=== PATIENT | male | born 1985 | race Two or more races ===

== ENCOUNTER 2019-03-26 18:22 | Emergency (ER) | payer OTHER ==
[~2019-03-26] VITALS: Ht 172.7 cm; Wt 97.2 kg
--- NOTE | 2019-03-26 19:05 | NUR ---
ASSUMED CARE OF PT. PT CURRENTLY IN IMAGING.
[2019-03-26] MEDS ORDERED: KETOROLAC 30 MG/1 ML IM ONE (19:30)
[2019-03-26] MEDS ORDERED: DIAZEPAM 5 MG TABLET PO ONE (19:30)
[2019-03-26] MEDS ORDERED: KETOROLAC 30 MG/1 ML ONE (19:43)
[2019-03-26] MEDS ORDERED: DIAZEPAM 5 MG TABLET ONE (19:43)
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
[2019-03-26 20:20] VITALS: BP 129/96
[2019-03-26] MEDS ORDERED: OMNIPAQUE 350 MG/ML, 100ML BOTTLE ONE (20:24)
[2019-03-26 20:50] LABS: BASOPHILS # (AUTO) 0.04 x10^3/uL (0-0.1); BASOPHILS % (AUTO) 0 % (0-1); EOSINOPHILS # (AUTO) 0.04 x10^3/uL (0-0.4); EOSINOPHILS % (AUTO) 0 % (1-7); LYMPHOCYTES # (AUTO) 1.95 x10^3/uL (1-3.4); LYMPHOCYTES % (AUTO) 20 % (22-44); MD NO; MEAN CORPUSCULAR HEMOGLOBIN 28.5 pg (27.5-34.5); MEAN CORPUSCULAR HGB CONC 34.3 g/dL (33.2-36.2); MEAN CORPUSCULAR VOLUME 82.9 fL (81-97); MEAN PLATELET VOLUME 9.2 fL (7.4-10.4); MONOCYTES # (AUTO) 0.64 x10^3/uL (0.2-0.8); MONOCYTES % (AUTO) 7 % (2-9); NEUTROPHILS # (AUTO) 7.24 x10^3/uL (1.8-6.8); NEUTROPHILS % (AUTO) 73 % (42-75); PLATELET COUNT 249 x10^3/uL (130-400); RED BLOOD COUNT 5.26 x10^6/uL (4.38-5.82); RED CELL DISTRIBUTION WIDTH 13.2 % (9.4-14.8)
[2019-03-26 20:59] LABS: MICROSCOPIC AUTO
[2019-03-26 21:01] LABS: ANION GAP 7 mmol/L (5-15); CALCIUM 8.8 mg/dL (8.5-10.1); CHLORIDE 109 mmol/L (98-107); CREATININE 0.95 mg/dL (0.7-1.3)
[2019-03-26 21:02] LABS: CULTURE INDICATED? NO
--- NOTE | 2019-03-26 21:10 | NUR ---
PT REPORTS PAIN IS DECREASED FROM 8/10 TO 6/10. PT AO X 4. SKIN PWD. RESP EVEN AND UNLABORED. PT AWARE THAT WE ARE WAITING FOR LAB/IMAGING RESULTS. CALL LIGHT WITHIN REACH. WILL CONT TO MONITOR PT.
--- NOTE | 2019-03-26 21:46 | NUR ---
REPORT TO HAYLIE BENJAMIN WHO ASSUMED CARE OF PT.
--- NOTE | 2019-03-26 21:54 | NUR ---
REPORT RECEIVED FROM HAYLIE ARCINIEGA. ASSUMED CARE OF PT. AWAITING CT RESULTS AT THIS TIME. WILL CONTINUE TO MONITOR.
--- NOTE | 2019-03-26 22:13 | NUR ---
Patient/Caregiver given discharge instructions and they have confirmed that they understand the instructions. Patient ambulatory with steady gait.
== END 2019-03-26 22:14 | disposition home or self-care (01) ==
LOC: ED 21:09
DX: S39.012A Strain of muscle, fascia and tendon of lower back, initial encounter (principal); W11.XXXA Fall on and from ladder, initial encounter; Y93.89 Activity, other specified; Y92.89 Other specified places as the place of occurrence of the external cause; Y99.8 Other external cause status
CPT/HCPCS: 36415; 71111; 72110; 72220; 73080; 73110; 74177; 80048; 81001; 85025; 96372; 99284; J1885; Q9967

== ENCOUNTER 2019-05-14 18:36 | Inpatient (IN) | payer OTHER ==
[~2019-05-14] VITALS: Ht 172.7 cm; Wt 97.0 kg
--- NOTE | 2019-05-14 19:20 | NUR ---
FIRST CONTACT WITH PT. PT STATES INCREASING LEFT ARM PAIN, SWELLING, AND REDNESS AFTER FALL March. PT'S AOX4. RESPS EVEN AND UNLABORED. BP/SPO2 MONITORS IN PLACE. CALL LIGHT WITHIN REACH. PA AT BEDSIDE TO EVALUATE AT THIS TIME.
[2019-05-14] MEDS ORDERED: ACETAMINOPHEN 325 MG TABLET ONE (19:23)
[2019-05-14] MEDS ORDERED: HYDROcodone/APAP 10/325 MG TABLET ONE (19:23)
[2019-05-14] MEDS ORDERED: ACETAMINOPHEN 325 MG TABLET PO ONE (19:30)
[2019-05-14] MEDS ORDERED: SODIUM CHLORIDE 0.9% 1,000ML IVBOLUS ONE (19:30)
[2019-05-14] MEDS ORDERED: HYDROcodone/APAP 10/325 MG TABLET PO ONE (19:30)
[2019-05-14] MEDS ORDERED: SODIUM CHLORIDE FLUSH 10ML SYR IVF ONE (19:30)
[2019-05-14 19:33] LABS: BASOPHILS # (AUTO) 0.05 x10^3/uL (0-0.1); BASOPHILS % (AUTO) 0 % (0-1); EOSINOPHILS # (AUTO) 0.09 x10^3/uL (0-0.4); EOSINOPHILS % (AUTO) 1 % (1-7); LYMPHOCYTES # (AUTO) 2.56 x10^3/uL (1-3.4); LYMPHOCYTES % (AUTO) 17 % (22-44); MD NO; MEAN CORPUSCULAR HEMOGLOBIN 28.4 pg (27.5-34.5); MEAN CORPUSCULAR HGB CONC 33.6 g/dL (33.2-36.2); MEAN CORPUSCULAR VOLUME 84.5 fL (81-97); MEAN PLATELET VOLUME 9.2 fL (7.4-10.4); MONOCYTES # (AUTO) 1.17 x10^3/uL (0.2-0.8); MONOCYTES % (AUTO) 8 % (2-9); NEUTROPHILS # (AUTO) 11.16 x10^3/uL (1.8-6.8); NEUTROPHILS % (AUTO) 74 % (42-75); PLATELET COUNT 226 x10^3/uL (130-400); RED BLOOD COUNT 4.76 x10^6/uL (4.38-5.82); RED CELL DISTRIBUTION WIDTH 13.6 % (9.4-14.8)
--- NOTE | 2019-05-14 19:35 | NUR ---
PT MEDICATED PER EMAR. PT TOLERATED WELL. NS INFUSING.
[2019-05-14 19:45] LABS: ALANINE AMINOTRANSFERASE 35 U/L (12-78); ANION GAP 9 mmol/L (5-15); CALCIUM 8.7 mg/dL (8.5-10.1); CHLORIDE 108 mmol/L (98-107); CREATININE 1.11 mg/dL (0.7-1.3)
[2019-05-14 19:51] LABS: ALKALINE PHOSPHATASE 68 U/L (45-117); BILIRUBIN,TOTAL 0.6 mg/dL (0.2-1.0); TOTAL PROTEIN 7.8 g/dL (6.4-8.2)
[2019-05-14] MEDS ORDERED: CEFTRIAXONE PMX 1GM/50ML 50 ML IVPB ONE (20:00)
[2019-05-14] MEDS ORDERED: CEFTRIAXONE PMX 1GM/50ML 50 ML ONE (20:04)
--- NOTE | 2019-05-14 20:23 | NUR ---
ABX INFUSING AT THIS TIME. PT TOLERATED WELL.
[2019-05-14 20:28] LABS: HCT (SEDRATE) 39.9 % (39.2-51.8)
[2019-05-14] MEDS ORDERED: SODIUM CHLORIDE FLUSH 10ML SYR IVF PRN (20:30)
--- NOTE | 2019-05-14 20:52 | NUR ---
REPORT GIVEN TO KATELYN STALLINGS. ALL QUESTIONS ANSWERED.
--- NOTE | 2019-05-14 20:55 | NUR ---
PT TO CT NOW.
[2019-05-14 21:00] VITALS: BP 116/79
[2019-05-14] MEDS ORDERED: ACETAMINOPHEN 325 MG TABLET PO PRN (21:00)
[2019-05-14] MEDS ORDERED: ONDANSETRON 2MG/ML, 2ML IVPush PRN (21:00)
[2019-05-14] MEDS ORDERED: OMNIPAQUE 350 MG/ML, 100ML BOTTLE ONE (21:00)
[2019-05-14] MEDS: SODIUM CHLORIDE 0.9% 1,000 ML IV SCH (21:58)
[2019-05-14] MEDS: CLINDAMYCIN PMX 600MG/50ML 50 ML IV SCH (21:58)
[2019-05-14] MEDS: HYDROcodone/APAP 5/325 TABLET PO PRN (23:35)
[2019-05-15 00:27] VITALS: BP 112/74
[2019-05-15 05:30] LABS: BASOPHILS # (AUTO) 0.04 x10^3/uL (0-0.1); BASOPHILS % (AUTO) 0 % (0-1); EOSINOPHILS # (AUTO) 0.32 x10^3/uL (0-0.4); EOSINOPHILS % (AUTO) 3 % (1-7); LYMPHOCYTES # (AUTO) 2.72 x10^3/uL (1-3.4); LYMPHOCYTES % (AUTO) 22 % (22-44); MD NO; MEAN CORPUSCULAR HEMOGLOBIN 28.5 pg (27.5-34.5); MEAN CORPUSCULAR HGB CONC 33.5 g/dL (33.2-36.2); MEAN CORPUSCULAR VOLUME 84.9 fL (81-97); MEAN PLATELET VOLUME 9.5 fL (7.4-10.4); MONOCYTES # (AUTO) 1.07 x10^3/uL (0.2-0.8); MONOCYTES % (AUTO) 9 % (2-9); NEUTROPHILS # (AUTO) 8.28 x10^3/uL (1.8-6.8); NEUTROPHILS % (AUTO) 67 % (42-75); PLATELET COUNT 202 x10^3/uL (130-400); RED CELL DISTRIBUTION WIDTH 13.8 % (9.4-14.8)
[2019-05-15 05:31] LABS: ANION GAP 7 mmol/L (5-15); CALCIUM 8.6 mg/dL (8.5-10.1); CHLORIDE 110 mmol/L (98-107); CREATININE 0.78 mg/dL (0.7-1.3)
[2019-05-15 05:35] LABS: HEMOGLOBIN A1C 5.4 % (4.2-6.3)
[2019-05-15] MEDS: CLINDAMYCIN PMX 600MG/50ML 50 ML IV SCH ×3 (05:57→21:58)
[2019-05-15] MEDS: SODIUM CHLORIDE 0.9% 1,000 ML IV SCH ×2 (07:00→17:55)
[2019-05-15 07:42] VITALS: BP 110/74
[2019-05-15 13:50] VITALS: BP 135/91
[2019-05-15] MEDS: HYDROcodone/APAP 5/325 TABLET PO PRN ×2 (14:18→22:06)
[2019-05-15 21:14] VITALS: BP 120/81
[2019-05-16] MEDS: SODIUM CHLORIDE 0.9% 1,000 ML IV SCH ×3 (01:54→22:20)
[2019-05-16 01:59] VITALS: BP 114/78
[2019-05-16] MEDS: CLINDAMYCIN PMX 600MG/50ML 50 ML IV SCH ×3 (05:55→22:18)
[2019-05-16 06:11] LABS: BASOPHILS # (AUTO) 0.03 x10^3/uL (0-0.1); BASOPHILS % (AUTO) 0 % (0-1); EOSINOPHILS % (AUTO) 3 % (1-7); LYMPHOCYTES # (AUTO) 2.23 x10^3/uL (1-3.4); LYMPHOCYTES % (AUTO) 23 % (22-44); MD NO; MEAN CORPUSCULAR HGB CONC 33.3 g/dL (33.2-36.2); MEAN CORPUSCULAR VOLUME 84.1 fL (81-97); MEAN PLATELET VOLUME 9.2 fL (7.4-10.4); MONOCYTES # (AUTO) 0.64 x10^3/uL (0.2-0.8); MONOCYTES % (AUTO) 7 % (2-9); NEUTROPHILS % (AUTO) 68 % (42-75); PLATELET COUNT 206 x10^3/uL (130-400); RED BLOOD COUNT 4.85 x10^6/uL (4.38-5.82)
[2019-05-16 06:22] LABS: ANION GAP 8 mmol/L (5-15); CHLORIDE 108 mmol/L (98-107); CREATININE 0.87 mg/dL (0.7-1.3)
[2019-05-16 07:23] VITALS: BP 133/92
[2019-05-16] MEDS: HYDROcodone/APAP 5/325 TABLET PO PRN (13:12)
[2019-05-16 13:17] VITALS: BP 129/84
[2019-05-16 20:04] VITALS: BP 113/71
[2019-05-17 01:38] VITALS: BP 117/77
[2019-05-17] MEDS: CLINDAMYCIN PMX 600MG/50ML 50 ML IV SCH (06:04)
[2019-05-17 06:54] VITALS: BP 136/95
[2019-05-17] MEDS: SODIUM CHLORIDE 0.9% 1,000 ML IV SCH (08:32)
[2019-05-17] MEDS ORDERED: DOXY100T PO (10:04)
[2019-05-17] MEDS ORDERED: AMOX1TAB64 PO (10:04)
[2019-05-17] MEDS ORDERED: LACT1CAP35 PO (10:24)
== END 2019-05-17 11:24 | disposition home or self-care (01) | DRG 872 ==
LOC: ED 19:39 → 3NE 21:15 → DCLOUNGE 05-17 11:10
PROVIDERS: ADMIT Internal Medicine; ATTEND Internal Medicine
DX: A41.9 Sepsis, unspecified organism (principal); L03.114 Cellulitis of left upper limb; M71.10 Other infective bursitis, unspecified site; M71.122 Other infective bursitis, left elbow; Z83.3 Family history of diabetes mellitus
CPT/HCPCS: 36415; 80048; 80053; 83036; 83605; 84145; 85025; 85651; 86140; 87040; 96374; 99285; G0378; J0696; J2405; Q9967; J7030

== ENCOUNTER 2020-02-18 11:39 | Emergency (ER) | payer OTHER ==
[~2020-02-18] VITALS: Ht 172.7 cm; Wt 101.0 kg
[~2020-02-18 11:39] MED LIST: AMOX1TAB64 PO; DOXY100T PO; LACT1CAP35 PO
--- NOTE | 2020-02-18 11:57 | NUR ---
report to HAYLIE Tillman.
[2020-02-18] MEDS ORDERED: DIPH,PERTUSS(ACELL),TET VAC/PF 0.5 ML IM-VACC ONE ×2 (12:22→12:30)
[2020-02-18] MEDS ORDERED: LIDOCAINE-MPF 1%, 5ML ONE (12:27)
[2020-02-18] MEDS ORDERED: LIDOCAINE 1%, 2ML INFIL ONE (12:30)
[2020-02-18] MEDS ORDERED: NEOSPORIN OINT. PKT 1 PACKET ONE ×2 (12:38→12:47)
--- NOTE | 2020-02-18 12:46 | NUR ---
PT SITTING ON BED, WOUND HAS BEEN CLEANED AND SUTURED. RN ADMINISTERED TDAP TO RIGHT ARM. WOUND IS DRESSED AND PATIENT IS READY FOR DISCHARGE. DISCHARGE INSTRUCTIONS ON WOUND CARE ADMINISTERED. PT VERBALIZES UNDERSTANDING OF ALL INSTRUCTIONS AND FOLLOW UP. PT TO AMBULATE OUT OF ED.
[2020-02-18 13:02] VITALS: BP 128/68
== END 2020-02-18 13:05 | disposition home or self-care (01) ==
LOC: ED 12:04
DX: S61.215A Laceration without foreign body of left ring finger without damage to nail, initial encounter (principal); X58.XXXA Exposure to other specified factors, initial encounter; Y93.89 Activity, other specified; Y92.69 Other specified industrial and construction area as the place of occurrence of the external cause; Y99.8 Other external cause status
CPT/HCPCS: 12001; 90471; 90715

== ENCOUNTER 2020-10-10 04:38 | Inpatient (IN) | payer OTHER ==
[~2020-10-10] VITALS: Ht 172.7 cm; Wt 93.8 kg
[2020-10-10] MEDS ORDERED: KETOROLAC 30 MG/1 ML ONE (05:47)
[2020-10-10] MEDS ORDERED: ACETAMINOPHEN 500 MG TABLET ONE (05:47)
[2020-10-10 05:56] LABS: BASOPHILS % (AUTO) 0 % (0-1); EOSINOPHILS % (AUTO) 0 % (1-7); LYMPHOCYTES % (AUTO) 5 % (22-44); MEAN CORPUSCULAR HEMOGLOBIN 27.9 pg (27.5-34.5); MEAN CORPUSCULAR HGB CONC 34.3 g/dL (33.2-36.2); MEAN PLATELET VOLUME 8.6 fL (7.4-10.4); MONOCYTES % (AUTO) 5 % (2-9); NEUTROPHILS % (AUTO) 89 % (42-75); PLATELET COUNT 271 x10^3/uL (130-400); RED BLOOD COUNT 4.87 x10^6/uL (4.38-5.82); RED CELL DISTRIBUTION WIDTH 13.7 % (9.4-14.8)
[2020-10-10] MEDS ORDERED: SODIUM CHLORIDE 0.9% 1,000ML IVBOLUS ONE (06:00)
[2020-10-10] MEDS ORDERED: KETOROLAC 30 MG/1 ML IVPush ONE (06:00)
[2020-10-10] MEDS ORDERED: ACETAMINOPHEN 500 MG TABLET PO ONE (06:00)
[2020-10-10] MEDS: ALBUTEROL HFA 90 MCG/SPRAY INH SCH ×14 (06:01→21:03)
[2020-10-10 06:03] LABS: MD NO
[2020-10-10 06:06] LABS: ALANINE AMINOTRANSFERASE 27 U/L (12-78); ALBUMIN 3.1 g/dL (3.4-5.0); ANION GAP 8 mmol/L (5-15); CALCIUM 8.1 mg/dL (8.5-10.1); CHLORIDE 103 mmol/L (98-107)
[2020-10-10 06:13] LABS: ALKALINE PHOSPHATASE 52 U/L (45-117); BILIRUBIN,TOTAL 0.6 mg/dL (0.2-1.0); D-DIMER (DIC) 1.16 ug/mlFEU (0.00-0.52); PROTIME 10.7 Seconds (9.6-11.5); TOTAL PROTEIN 7.8 g/dL (6.4-8.2)
[2020-10-10] MEDS ORDERED: DEXAMETHASONE 4 MG/ML, 1ML ONE ×2 (06:48→17:54)
[2020-10-10] MEDS ORDERED: CEFTRIAXONE PMX 1GM/50ML 50 ML ONE (06:48)
[2020-10-10] MEDS ORDERED: CEFTRIAXONE PMX 2GM/50ML 50 ML IVPB ONE (07:00)
--- NOTE | 2020-10-10 07:05 | NUR ---
Ambulated pt in room. Pt o2sat dropped to 88%. Pt had a quick recovery on RA with o2sat returning to 94%, but was very tachypneic and report worsening SOB. Pt diaphoretic. notified.
--- NOTE | 2020-10-10 07:10 | NUR ---
assumed care of pt. report from Katelynn STALLINGS. pt here for fever body aches and SOB with COVID. pt reports that his is COVID+. pt has been medicated and reports that he is feeling better. pt is diaphoretic and per report, became hypoxic on RA ambulation. pt to be admitted. pt updated on POC. pt verbalizes understanding. pt sitting up on gurney in position of comfort. no family at bedside
--- NOTE | 2020-10-10 07:17 | NUR ---
Report given to HAYLIE Borden.
[2020-10-10] MEDS ORDERED: DEXAMETHASONE 4 MG/ML, 1ML IVPush ONE (07:30)
--- NOTE | 2020-10-10 07:50 | NUR ---
no changes. pt resting in position of comfort
[2020-10-10] MEDS ORDERED: CEFTRIAXONE PMX 2GM/50ML 50 ML ONE (07:52)
[2020-10-10] MEDS ORDERED: KETOROLAC 30 MG/1 ML IV PRN (08:00)
[2020-10-10] MEDS ORDERED: ACETAMINOPHEN 325 MG TABLET PO PRN (08:00)
[2020-10-10] MEDS ORDERED: ONDANSETRON ODT 4 MG PO PRN (08:00)
[2020-10-10] MEDS ORDERED: ONDANSETRON 2MG/ML, 2ML IVPush PRN (08:00)
[2020-10-10] MEDS: ASCORBIC ACID 500 MG TABLET PO SCH ×3 (08:00→18:17)
[2020-10-10] MEDS ORDERED: ENOXAPARIN 40 MG/0.4 ML SQ SCH (08:00)
[2020-10-10] MEDS ORDERED: DOXYCYCLINE 100 MG in DEXTROSE 5% 250 ML IV SCH (08:00)
[2020-10-10] MEDS: DOXYCYCLINE 100 MG in DEXTROSE 5% 250 ML IV SCH ×3 (08:00→21:03)
[2020-10-10] MEDS ORDERED: OMNIPAQUE 350 MG/ML, 75ML BOTTLE ONE (09:08)
--- NOTE | 2020-10-10 09:15 | NUR ---
pt has been returned from [facility] ABX infusion completed pt has had breakfast tray delivered. 100 of meal consumed pt positioning for comfort. updated on POC ABX ordered fr pharmacy
[2020-10-10] MEDS: SODIUM CHLORIDE 0.9% 1,000 ML IV SCH ×2 (09:24→18:17)
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
--- NOTE | 2020-10-10 10:48 | NUR ---
no changes. pt resting. report to Naresh STALLINGS
--- NOTE | 2020-10-10 12:35 | NUR ---
pt has been assisted to [facility] commligia by JENAE choudhury awaiting bed assignment for admit report to Marquez STALLINGS for lunch
--- NOTE | 2020-10-10 13:30 | NUR ---
pt resting in position of comfort. no new c/o
--- NOTE | 2020-10-10 14:30 | NUR ---
pt moved to hospital bed and positioning for comfort. well tolerated pt updated on POC awaiting bed assignment
--- NOTE | 2020-10-10 15:24 | NUR ---
bed assignment recieved, attempting to call report
--- NOTE | 2020-10-10 15:28 | NUR ---
report called to Kofi STALLINGS
--- NOTE | 2020-10-10 15:45 | NUR ---
conferred with lab and COVID swab has not been processed. COVID swab collected and sent
[2020-10-10] MEDS: THIAMINE 100MG TABLET PO SCH (18:15)
[2020-10-10] MEDS: CHOLECALCIFEROL 5,000u TAB PO SCH (18:15)
[2020-10-10] MEDS: ZINC SULFATE 220 MG CAPSULE PO SCH (18:16)
[2020-10-10 19:11] VITALS: BP 107/72
[2020-10-10] MEDS: ENOXAPARIN 40 MG/0.4 ML SQ SCH (21:03)
[2020-10-11] MEDS ORDERED: ALBUTEROL HFA 90 MCG/SPRAY INH SCH
[2020-10-11 00:56] VITALS: BP 108/73
[2020-10-11] MEDS: ALBUTEROL HFA 90 MCG/SPRAY INH SCH ×6 (02:06→21:00)
[2020-10-11] MEDS: SODIUM CHLORIDE 0.9% 1,000 ML IV SCH ×2 (02:07→10:30)
[2020-10-11 05:32] LABS: BASOPHILS % (AUTO) 0 % (0-1); EOSINOPHILS % (AUTO) 0 % (1-7); LYMPHOCYTES % (AUTO) 8 % (22-44); MEAN CORPUSCULAR HEMOGLOBIN 27.5 pg (27.5-34.5); MEAN CORPUSCULAR HGB CONC 33.3 g/dL (33.2-36.2); MONOCYTES % (AUTO) 5 % (2-9); NEUTROPHILS % (AUTO) 87 % (42-75); PLATELET COUNT 309 x10^3/uL (130-400); RED BLOOD COUNT 4.92 x10^6/uL (4.38-5.82)
[2020-10-11 05:48] LABS: ALANINE AMINOTRANSFERASE 24 U/L (12-78); ALBUMIN 2.8 g/dL (3.4-5.0); ALKALINE PHOSPHATASE 54 U/L (45-117); ANION GAP 10 mmol/L (5-15); BILIRUBIN,TOTAL 0.3 mg/dL (0.2-1.0); CALCIUM 8.3 mg/dL (8.5-10.1); CHLORIDE 109 mmol/L (98-107); CREATININE 0.66 mg/dL (0.7-1.3); TOTAL PROTEIN 7.4 g/dL (6.4-8.2)
[2020-10-11 05:56] LABS: MD SCAN
[2020-10-11] MEDS: CEFTRIAXONE PMX 1GM/50ML 50 ML IV SCH (06:30)
[2020-10-11 07:12] VITALS: BP 105/68
[2020-10-11 09:20] VITALS: BP 114/76
[2020-10-11] MEDS: THIAMINE 100MG TABLET PO SCH (09:24)
[2020-10-11] MEDS: DOXYCYCLINE 100 MG in DEXTROSE 5% 250 ML IV SCH ×2 (09:24→21:00)
[2020-10-11] MEDS: ZINC SULFATE 220 MG CAPSULE PO SCH (09:24)
[2020-10-11] MEDS: ASCORBIC ACID 500 MG TABLET PO SCH ×2 (09:24→17:15)
[2020-10-11] MEDS: CHOLECALCIFEROL 5,000u TAB PO SCH (09:24)
[2020-10-11] MEDS: DEXAMETHASONE 4 MG/ML, 1ML IVPush SCH (09:24)
[2020-10-11] MEDS: ENOXAPARIN 40 MG/0.4 ML SQ SCH (09:25)
[2020-10-11 10:25] LABS: RAPID INFLUENZA A Negative (Negative); RAPID INFLUENZA B Negative (Negative)
[2020-10-11 12:45] VITALS: BP 117/79
[2020-10-11 15:35] VITALS: BP 131/85
[2020-10-11 18:23] VITALS: BP 123/82
[2020-10-12] MEDS: ALBUTEROL HFA 90 MCG/SPRAY INH SCH ×4 (01:08→14:46)
[2020-10-12 01:14] VITALS: BP 121/87
[2020-10-12 04:53] LABS: BASOPHILS % (AUTO) 0 % (0-1); EOSINOPHILS % (AUTO) 0 % (1-7); LYMPHOCYTES % (AUTO) 13 % (22-44); MEAN CORPUSCULAR HEMOGLOBIN 27.8 pg (27.5-34.5); MEAN CORPUSCULAR HGB CONC 33.7 g/dL (33.2-36.2); MEAN PLATELET VOLUME 8.7 fL (7.4-10.4); MONOCYTES % (AUTO) 9 % (2-9); NEUTROPHILS % (AUTO) 79 % (42-75); PLATELET COUNT 384 x10^3/uL (130-400); RED BLOOD COUNT 5.06 x10^6/uL (4.38-5.82); RED CELL DISTRIBUTION WIDTH 14.2 % (9.4-14.8)
[2020-10-12 05:07] LABS: ANION GAP 10 mmol/L (5-15); CALCIUM 8.9 mg/dL (8.5-10.1); CHLORIDE 105 mmol/L (98-107); CREATININE 0.75 mg/dL (0.7-1.3)
[2020-10-12 05:46] LABS: MD SCAN
[2020-10-12] MEDS: CEFTRIAXONE PMX 1GM/50ML 50 ML IV SCH (06:29)
[2020-10-12 07:26] VITALS: BP 119/80
[2020-10-12] MEDS ORDERED: ENOXAPARIN 40 MG/0.4 ML SQ SCH (09:00)
[2020-10-12] MEDS: ZINC SULFATE 220 MG CAPSULE PO SCH (10:12)
[2020-10-12] MEDS: THIAMINE 100MG TABLET PO SCH (10:12)
[2020-10-12] MEDS: DEXAMETHASONE 4 MG/ML, 1ML IVPush SCH (10:12)
[2020-10-12] MEDS: DOXYCYCLINE 100 MG in DEXTROSE 5% 250 ML IV SCH (10:12)
[2020-10-12] MEDS: CHOLECALCIFEROL 5,000u TAB PO SCH (10:12)
[2020-10-12] MEDS: ASCORBIC ACID 500 MG TABLET PO SCH (10:13)
[2020-10-12] MEDS ORDERED: CEFD300C37 PO (11:06)
[2020-10-12] MEDS ORDERED: DEXA4TAB66 PO (11:06)
[2020-10-12] MEDS ORDERED: THIA100T67 PO (11:06)
[2020-10-12] MEDS ORDERED: ACET325T26 PO (11:06)
[2020-10-12] MEDS ORDERED: DOXY100T23 PO (11:06)
[2020-10-12] MEDS ORDERED: ZINC220C7 PO (11:06)
[2020-10-12] MEDS ORDERED: ASCO500T9 PO (11:06)
[2020-10-12 12:31] VITALS: BP 113/80
== END 2020-10-12 15:30 | disposition home or self-care (01) | DRG 871 ==
LOC: ED 06:23 → EDIP 10:52 → 3N 16:42
PROVIDERS: ADMIT Internal Medicine Infectious Disease; ATTEND Internal Medicine Infectious Disease
DX: A41.89 Other specified sepsis (principal); J12.89 Other viral pneumonia; J96.01 Acute respiratory failure with hypoxia; U07.1 COVID-19; E87.1 Hypo-osmolality and hyponatremia; R73.9 Hyperglycemia, unspecified
CPT/HCPCS: 36415; 71045; 71275; 80048; 80053; 82728; 83036; 83605; 83615; 84145; 85025; 85049; 85379; 85384; 85610; 85730; 86140; 87040; 87400; 87635; 93005; 96374; 99285; G0378; J0696; J1100; J1650; J1885; J7060; Q9967; J7030